=== PATIENT | female | born 1965 | race American Indian/Alaskan Native ===

== ENCOUNTER 2018-09-10 15:38 | Inpatient (IN) | payer OTHER ==
[2018-09-10 16:44] LABS: Basophils # (Auto) 0.1 K/mm3 (0.0-0.1); Basophils % (Auto) 0.8 % (0.0-1.8); Eosinophils # (Auto) 0.2 K/mm3 (0.0-0.4); Eosinophils % (Auto) 3.7 % (0.0-4.3); Hemoglobin 13.6 gm/dl (10.1-14.3); Lymphocytes # (Auto) 2.2 K/mm3 (1.2-5.4); Lymphocytes % (Auto) 36.4 % (13.4-35.0); Mean Corpuscular HGB Conc 34 % (30-34); Mean Corpuscular Hemoglobin 30 pg (28-32); Mean Corpuscular Volume 87 fl (79-97); Monocytes # (Auto) 0.4 K/mm3 (0.0-0.8); Monocytes % (Auto) 6.7 % (0.0-7.3); Platelet Count 221 K/mm3 (140-440); Red Blood Count 4.61 M/mm3 (3.65-5.03); Red Cell Distribution Width 14.1 % (13.2-15.2)
[2018-09-10] MEDS ORDERED: TORADOL IV ONE (17:50)
[2018-09-10] MEDS ORDERED: NACL 0.9% 1000 ML 1,000 ML IV ONE (17:50)
[2018-09-10 18:02] LABS: Alanine Aminotransferase 13 units/L (7-56); Albumin 4.5 g/dL (3.9-5); BUN/Creatinine Ratio 12; Blood Urea Nitrogen 12 mg/dL (7-17); Calcium 9.5 mg/dL (8.4-10.2); Hemolysis Index 4; Lipase 14 units/L (13-60)
--- NOTE | 2018-09-10 18:47 | Emergency Department Report ---
ED Abdominal Pain HPI - General Chief Complaint: Abdominal Pain Stated Complaint: GALLSTONES/ABDONIMAL PAIN Time Seen by Provider: 09/10/18 17:18 Source: patient, EMS Mode of arrival: Ambulatory Limitations: No Limitations - History of Present Illness Initial Comments: This is a 53-year-old female nontoxic, well nourished in appearance, no acute signs of distress presents to the ED with c/o of nausea and right upper abdominal pain 2 days. Patient denies any vomiting. Patient describes abdominal pain as cramping and aching with level of 3/10. Patient stated she was diagnosed with gallstones in [place] and needs to have a surgery but has never scheduled surgery yet. Patient denies chest pain, short of breath, fever, chills, headache, stiff neck, numbness or tingling. Patient denies any diarrhea or constipation. Patient denies any recent travels. Patient denies any drug allergies or significant past medical history. MD Complaint: abdominal pain -: days(s) (2) Location: RUQ Radiation: R flank Migration to: no migration Severity: mild Severity scale (0 -10): 8 Quality: aching Consistency: constant Improves With: nothing Worsens With: nothing Associated Symptoms: nausea. denies: vomiting, diarrhea, fever, chills, constipation, dysuria, hematemesis, hematochezia, melena, hematuria, anorexia, syncope - Related Data Allergies Allergy/AdvReac Type Severity Reaction Status Date / Time peanut Allergy Hives Verified 09/10/18 15:52 ED Review of Systems ROS: Stated complaint: GALLSTONES/ABDONIMAL PAIN Other details as noted in HPI Constitutional: denies: chills, fever Eyes: denies: eye pain, eye discharge, vision change ENT: denies: ear pain, throat pain Respiratory: denies: cough, shortness of breath, wheezing Cardiovascular: denies: chest pain, palpitations Endocrine: no symptoms reported Gastrointestinal: abdominal pain, nausea. denies: vomiting, diarrhea, constipation Genitourinary: denies: urgency, dysuria, discharge Musculoskeletal: denies: back pain, joint swelling, arthralgia Skin: denies: rash, lesions Neurological: denies: headache, weakness, paresthesias Psychiatric: denies: anxiety, depression Hematological/Lymphatic: denies: easy bleeding, easy bruising ED Past Medical Hx - Past Medical History Hx Asthma: Yes - Surgical History Additional Surgical History: Hyst, shoulder, throat - Social History Smoking Status: Never Smoker Substance Use Type: None ED Physical Exam - General Limitations: No Limitations General appearance: alert, in no apparent distress - Head Head exam: Present: atraumatic, normocephalic - Eye Eye exam: Present: normal appearance Pupils: Present: normal accommodation - ENT ENT exam: Present: normal exam, mucous membranes moist - Neck Neck exam: Present: normal inspection, full ROM. Absent: tenderness, meningismus, lymphadenopathy - Respiratory Respiratory exam: Present: normal lung sounds bilaterally. Absent: respiratory distress, wheezes, rales, rhonchi, stridor, chest wall tenderness, accessory muscle use, decreased breath sounds, prolonged expiratory - Cardiovascular Cardiovascular Exam: Present: regular rate, normal rhythm, normal heart sounds. Absent: bradycardia, tachycardia, irregular rhythm, systolic murmur, diastolic murmur, rubs, gallop - GI/Abdominal GI/Abdominal exam: Present: soft, tenderness (RUQ), guarding, normal bowel sounds. Absent: distended, rebound, rigid, diminished bowel sounds, hyperactive bowel sounds, hypoactive bowel sounds, mass, bruit, pulsatile mass - Expanded GI/Abdominal Exam Expanded GI/Abdominal exam: Present: Hays's sign. Absent: psoas sign, Rovsing's sign, tenderness at [place]bur[place]'s Point, ascites - Rectal Rectal exam: Present: deferred - Extremities Exam Extremities exam: Present: normal inspection, full ROM, normal capillary refill. Absent: tenderness - Back Exam Back exam: Present: normal inspection, full ROM. Absent: tenderness, CVA tenderness (R), CVA tenderness (L), muscle spasm, paraspinal tenderness, vertebral tenderness, rash noted - Neurological Exam Neurological exam: Present: alert, oriented X3, normal gait - Psychiatric Psychiatric exam: Present: normal affect, normal mood - Skin Skin exam: Present: warm, dry, intact, normal color. Absent: rash ED Course Vital Signs 09/10/18 09/10/18 09/10/18 15:52 19:15 19:21 Temperature 98.6 F Pulse Rate 68 Respiratory 18 18 18 Rate Blood Pressure 110/72 Blood Pressure [Right] O2 Sat by Pulse 100 Oximetry 09/10/18 09/10/18 19:45 20:42 Temperature Pulse Rate 58 L Respiratory 18 18 Rate Blood Pressure Blood Pressure 112/74 [Right] O2 Sat by Pulse 97 Oximetry - Reevaluation(s) Reevaluation #1: 09/10/18 20:40 Patient is speaking in full sentences with no signs of distress noted. ED Medical Decision Making - Lab Data Result diagrams: 09/10/18 16:31 09/10/18 16:31 - Medical Decision Making This is a 53-year-old female that presents with cholecystitis. Patient is stable and was examined by me. There is slight abdominal tenderness at RUQ Labs obtained. UA obtained. US and CT with contrast of abdomen obtained and dictated by the radiologist. Patient is notified of the report with no questions noted by the patient. Patient was given some rounds of pain analgesics IV which sent as a pain has not resolved. Patient was consulted with Dr. Hartley (general surgeon) about patient history , physical exam, laboratory a CT scan with abdomen it agrees for admission. Patient is admitted by Dr. Shaw (hospitalist). At time of admission, the patient does not seem toxic or ill in appearance. No acute signs of distress noted. Patient agrees to admission treatment plan of care. No further questions noted by the patient. Critical care attestation.: If time is entered above; I have spent that time in minutes in the direct care of this critically ill patient, excluding procedure time. ED Disposition Clinical Impression: Cholecystitis, Biliary colic Disposition: OP ADMIT IP TO THIS HOSP Is pt being admited?: Yes Condition: Stable
[2018-09-10] MEDS ORDERED: MORPHINE IV ONE (18:59)
[2018-09-10] MEDS ORDERED: ZOFRAN IV ONE (18:59)
--- NOTE | 2018-09-10 19:45 | Ultrasound Report ---
FINAL REPORT PROCEDURE: US ABDOMEN COMPLETE TECHNIQUE: Real-time sonography in multiple planes of the abdomen was performed with image documentation. CPT 16391 HISTORY: abd pain COMPARISON: No prior studies are available for comparison. FINDINGS: Liver: There is an echogenic lesion in the right lobe which measures 1.7 x 1.7 x 1.7 centimeters, of indeterminate etiology. Gallbladder: A fluid-filled gallbladder is not visualized. There is shadowing in the region of the gallbladder fossa, which could be related to wall echo shadow complex secondary to contracted gallbladder with gallstones. [employer] reports positive sonographic Hays sign. There is a structure measured in the region of the gallbladder fossa, which could be a thickened gallbladder wall, measuring 5 millimeters in thickness Intrahepatic bile ducts: Normal caliber . Extrahepatic bile ducts: Common bile duct is abnormally dilated, measuring 9 millimeters in caliber. Pancreas: Not fully visualized. Aorta: Visualized portions appear normal. IVC: Visualized portions appear normal. RIGHT kidney: Normal echotexture. No focal renal mass, calculus, or hydronephrosis. Length: 9.1cm. LEFT kidney: Normal echotexture. No focal renal mass, calculus, or hydronephrosis . Length: 8.2cm. Spleen: Normal size and echotexture. No focal lesions. Intraperitoneal fluid: None . Other: None . IMPRESSION: Fluid-filled gallbladder is not visualized. Structure in the gallbladder fossa could be related to contracted gallbladder with gallstones. Cannot exclude cholecystitis based on above findings. There is biliary ductal dilatation. 1.7 centimeter echogenic lesion in the right hepatic lobe is indeterminate. This could be related to a hemangioma, however recommend follow-up multiphase CT with IV contrast for further evaluation
--- NOTE | 2018-09-10 22:12 | Cat Scan Report ---
FINAL REPORT PROCEDURE: CT ABDOMEN PELVIS W CON TECHNIQUE: Computerized axial tomography of the abdomen and pelvis was performed after the IV injection of iodinated nonionic contrast. HISTORY: abd pain COMPARISON: Ultrasound right upper quadrant 09/10/2018 FINDINGS: Liver demonstrates an irregular hypodense lesion measuring 1.4 centimeters by 1.2 centimeters located in the right lobe which appears to demonstrate centripetal enhancement. Spleen, pancreas and adrenal glands are within normal limits. Bilateral kidneys demonstrate uniform enhancement without hydronephrosis. Urinary bladder is normally distended with normal outlines. Aorta is of normal caliber. There is no free fluid or free air. Gallbladder brewster appear thickened. Small bowel loops are within normal limits. Appendix is normal. There is mild degree residual stool. Small uncomplicated fat containing umbilical hernia is noted. Vertebral height is normal. IMPRESSION: Thickened gallbladder brewster are suspicious for cholecystitis. An irregular hypodense lesion of right lobe liver demonstrating a peripheral enhancement most likely represents hemangioma. Its ultrasound appearance also is consistent with hemangioma.
[2018-09-10] MEDS ORDERED: DILAUDID IV ONE (22:39)
--- NOTE | 2018-09-10 23:42 | History and Physical Report ---
History of Present Illness Date of examination: 09/10/18 History of present illness: 53 year-old woman with a no medical history comes to emergency room with complaint of abdominal pain located in the right upper quadrant and epigastric area that started 2 days ago. he described the pain as sharp, constant, intensity 7/10, no radiation, worse with eating. Admits to nausea vomiting, no fever Review of systems Constitutional: no weight loss, chills, fever Ears, eyes, nose, mouth and throat: no nasal congestion, no nasal discharge, no sinus pressure, no vision change, no red eye. Neck: No neck pain or rigidity. Cardiovascular: no chest pain, palpitations Respiratory: no cough, shortness of breath Gastrointestinal: no hematochezia Genitourinary : no frequency , no hematuria Musculoskeletal: no joint swelling or muscle ache Integumentary: no rash, no pruritis Neurological: no parathesias, no numbness, no focal weakness Endocrine: no cold or heat intolerance, no polyuria or polydipsia Hematologic/Lymphatic: no easy bruising, no easy bleeding, no gland swelling Allergic/Immunologic: no urticaria, no angioedema PAST MEDICAL HISTORY none PAST SURGICAL HISTORY: left shoulder SOCIAL HISTORY: No alcohol, no drugs, tobacco FAMILY HISTORY: Hypertension Medications and Allergies Allergies Allergy/AdvReac Type Severity Reaction Status Date / Time peanut Allergy Hives Verified 09/10/18 15:52 Home Medications Medication Instructions Recorded Confirmed Last Taken Type FLUoxetine [PROzac] 20 mg PO BID 09/10/18 09/10/18 Unknown History Exam - Physical Exam Narrative exam: Gen. appearance: Patient lying in bed, no apparent distress HEENT: Normocephalic, atraumatic, pupils equally round and reactive to light, extraocular movement intact, and no sclericterus,. No JVD or thyromegaly or nodule,neck supple, no carotid bruit ,mucous membranes moist, no exudate or erythema Heart: S1, S2, regular rate and rhythm Lungs: Clear bilaterally, breathing comfortable Abdomen: Positive bowel sounds, right upper quadrant tenderness, nondistended, no organomegaly Extremity:no edema cyanosis, clubbing Skin: no rash, dry, warm Neuro: Oriented 3, cranial nerves II-12 intact, speech is fluent, motor and sensory intact - Constitutional Vitals: Temp Pulse Resp BP Pulse Ox 98.6 F 58 L 20 112/69 99 09/10/18 15:52 09/10/18 23:12 09/10/18 23:12 09/10/18 23:12 09/10/18 23:12 Results - Labs CBC & Chem 7: 09/10/18 16:31 09/10/18 16:31 Labs: Abnormal lab results 09/10/18 Range/Units 16:31 Lymph % (Auto) 36.4 H (13.4-35.0) % - Imaging and Cardiology CT scan - abdomen: report reviewed CT scan - pelvis: report reviewed US - abdomen: report reviewed Assessment and Plan Assessment Acute cholecystitis Plan Admit to medicine Nothing by mouth, IV fluids IV pain medication Consult surgery, DVT prophylaxis
[2018-09-11 05:05] LABS: Bilirubin,Urine NEG (Negative); Blood,Urine SM (Negative); Color,Urine Yellow (Yellow); Mucus,Urine FEW /HPF; Protein,Urine <15 mg/dL mg/dL (Negative)
[2018-09-11] MEDS ORDERED: MORPHINE IV PRN (09:53)
[2018-09-11] MEDS ORDERED: ZOFRAN IV PRN (09:53)
--- NOTE | 2018-09-11 09:59 | Consultation ---
History of Present Illness Consult date: 09/11/18 Chief complaint: abdominal pain - History of present illness History of present illness: 53 yo F with no PMHx presents with c/o RUQ and mid epigastric abdominal pain for the last 6-7 days. The pain is sharp, and does not radiate. It is brought on by eating any type of food. It usually gets better with fasting however it has been constant for the last several days. It is associated with nausea but no vomiting. + diarrhea. No CP, SOB, f/c. The patient has had pain like this in the past. In April she was worked up for the pain at the [place] and underwent ultrasound and MRI. She states she was diagnosed with gallstones and was waiting to hear back from the [place] regarding surgery. Last cscope was this year and was negative. Past History Past Medical History: No medical history Past Surgical History: hysterectomy (transvaginal/laparoscopic), Other (EGD/ cscope, right rotator cuff surgery) Social history: no significant social history Family history: no significant family history Medications and Allergies Allergies Allergy/AdvReac Type Severity Reaction Status Date / Time peanut Allergy Hives Verified 09/10/18 15:52 Home Medications Medication Instructions Recorded Confirmed Last Taken Type FLUoxetine [PROzac] 20 mg PO BID 09/10/18 09/10/18 Unknown History Active Meds: Active Medications Enoxaparin Sodium (Lovenox) 40 mg SUB-Q QDAY MICHAEL Piperacillin Sod/Tazobactam Sod (Zosyn/Ns 4.5gm/100ml) 4.5 gm in 100 mls @ 200 mls/hr IV Q8HR MICHAEL; Protocol Morphine Sulfate (Morphine) 2 mg IV Q4H PRN PRN Reason: Pain, Moderate (4-6) Ondansetron HCl (Zofran) 4 mg IV Q8H PRN PRN Reason: Nausea And Vomiting Review of Systems All systems: negative (10 pt ROS performed and negative except for that listed in HPI) Exam Vital Signs Temp Pulse Resp BP Pulse Ox 98.6 F 68 18 110/72 100 09/10/18 15:52 09/10/18 15:52 09/10/18 15:52 09/10/18 15:52 09/10/18 15:52 Narrative exam: Gen: AAOx3. NAD ENT: no scleral icterus or conjunctival pallor CV: S1, S2+, no m/r/g Resp: CTAB, no w/r/r Abd: soft, ND, +RUQ TTP. no r/r/g Ext: no c/c/e Results - Labs 09/10/18 16:31 09/10/18 16:31 Abnormal lab results 09/10/18 09/11/18 Range/Units 16:31 04:52 Lymph % (Auto) 36.4 H (13.4-35.0) % Ur Specific [place] > 1.059 H (1.003-1.030) Diabetes panel 09/10/18 Range/Units 16:31 Sodium 140 (137-145) mmol/L Potassium 4.9 (3.6-5.0) mmol/L Chloride 103.0 (98-107) mmol/L Carbon Dioxide 25 (22-30) mmol/L BUN 12 (7-17) mg/dL Creatinine 1.0 (0.7-1.2) mg/dL Glucose 90 (65-100) mg/dL Calcium 9.5 (8.4-10.2) mg/dL AST 19 (5-40) units/L ALT 13 (7-56) units/L Alkaline Phosphatase 82 (35-129) units/L Total Protein 7.5 (6.3-8.2) g/dL Albumin 4.5 (3.9-5) g/dL Calcium panel 09/10/18 Range/Units 16:31 Calcium 9.5 (8.4-10.2) mg/dL Albumin 4.5 (3.9-5) g/dL Pituitary panel 09/10/18 Range/Units 16:31 Sodium 140 (137-145) mmol/L Potassium 4.9 (3.6-5.0) mmol/L Chloride 103.0 (98-107) mmol/L Carbon Dioxide 25 (22-30) mmol/L BUN 12 (7-17) mg/dL Creatinine 1.0 (0.7-1.2) mg/dL Glucose 90 (65-100) mg/dL Calcium 9.5 (8.4-10.2) mg/dL Adrenal panel 09/10/18 Range/Units 16:31 Sodium 140 (137-145) mmol/L Potassium 4.9 (3.6-5.0) mmol/L Chloride 103.0 (98-107) mmol/L Carbon Dioxide 25 (22-30) mmol/L BUN 12 (7-17) mg/dL Creatinine 1.0 (0.7-1.2) mg/dL Glucose 90 (65-100) mg/dL Calcium 9.5 (8.4-10.2) mg/dL Total Bilirubin 0.40 (0.1-1.2) mg/dL AST 19 (5-40) units/L ALT 13 (7-56) units/L Alkaline Phosphatase 82 (35-129) units/L Total Protein 7.5 (6.3-8.2) g/dL Albumin 4.5 (3.9-5) g/dL - Imaging CT scan - abdomen: report reviewed, image reviewed CT scan - pelvis: report reviewed, image reviewed US - abdomen: report reviewed, image reviewed Assessment and Plan 53 yo F with acute cholecystitis, dilated common bile duct Plan: 1. Pt admitted to hospitalist service 2. [facility] 3. Pt LFTs, bilirubin normal despite dilated CBD. Rpt CMP in am 4. Clear liquid diet, NPO p MN 5. IVF 6. prn pain and nausea control 7. IV abx - zosyn 8. Plan for OR tomorrow 09/12/18 for laparoscopic, possible open, cholecystectomy with cholangiogram. All risks, benefits, and alternatives to surgery were discussed with the patient. All questions answered and consent obtained. Thank you for this consultation, please call with questions or concerns.
--- NOTE | 2018-09-11 13:06 | Progress Note ---
Assessment and Plan Assessment and plan: 53 year old -English female was presented to the emergency department complaining of right epigastric pain that has been worsened for the last [address] abdomen and pelvis and right upper quadrant abdominal ultrasound showed cholecystitis. Patient is on IV antibiotics, surgery consulted and will do a cholecystectomy tomorrow. DVT prophylaxis; on lovenox Disposition; will be discharged likely tomorrow after cholecystectomy. History Interval history: Patient was seen and evaluated this morning, abdominal pain is controlled. Hospitalist Physical - Physical exam Narrative exam: Not in cardiopulmonary distress. The patient appeared well nourished and normally developed. Vital signs as documented. Head exam is unremarkable. No scleral icterus . Neck is without jugular venous distension, thyromegaly, or carotid bruits. Lungs are clear to auscultation. Cardiac exam reveals regular rate and Rhythm. Abdominal exam reveals normal bowel sounds, nontender, nondistended. Extremities are nonedematous and both femoral and pedal pulses are normal. [employer]: Alert and oriented 3. No focal weakness. - Constitutional Vitals: Temp Pulse Resp BP Pulse Ox 97.4 F L 56 L 16 99/62 99 09/11/18 03:46 09/11/18 03:46 09/11/18 03:46 09/11/18 03:46 09/11/18 03:46 Results - Labs CBC & Chem 7: 09/10/18 16:31 09/10/18 16:31 Labs: Laboratory Last Values WBC 6.1 K/mm3 (4.5-11.0) 09/10/18 16:31 RBC 4.61 M/mm3 (3.65-5.03) 09/10/18 16:31 Hgb 13.6 gm/dl (10.1-14.3) 09/10/18 16:31 Hct 40.0 % (30.3-42.9) 09/10/18 16:31 MCV 87 fl (79-97) 09/10/18 16:31 MCH 30 pg (28-32) 09/10/18 16:31 MCHC 34 % (30-34) 09/10/18 16:31 RDW 14.1 % (13.2-15.2) 09/10/18 16:31 Plt Count 221 K/mm3 (140-440) 09/10/18 16:31 Lymph % (Auto) 36.4 % (13.4-35.0) H 09/10/18 16:31 [place] % (Auto) 6.7 % (0.0-7.3) 09/10/18 16:31 Eos % (Auto) 3.7 % (0.0-4.3) 09/10/18 16:31 Baso % (Auto) 0.8 % (0.0-1.8) 09/10/18 16:31 Lymph # 2.2 K/mm3 (1.2-5.4) 09/10/18 16:31 [place] # 0.4 K/mm3 (0.0-0.8) 09/10/18 16:31 Eos # 0.2 K/mm3 (0.0-0.4) 09/10/18 16:31 Baso # 0.1 K/mm3 (0.0-0.1) 09/10/18 16:31 Seg Neutrophils % 52.4 % (40.0-70.0) 09/10/18 16:31 Seg Neutrophils # 3.2 K/mm3 (1.8-7.7) 09/10/18 16:31 Sodium 140 mmol/L (137-145) 09/10/18 16:31 Potassium 4.9 mmol/L (3.6-5.0) 09/10/18 16:31 Chloride 103.0 mmol/L (98-107) 09/10/18 16:31 Carbon Dioxide 25 mmol/L (22-30) 09/10/18 16:31 Anion Gap 17 mmol/L 09/10/18 16:31 BUN 12 mg/dL (7-17) 09/10/18 16:31 Creatinine 1.0 mg/dL (0.7-1.2) 09/10/18 16:31 Estimated GFR > 60 ml/min 09/10/18 16:31 BUN/Creatinine Ratio 12 % 09/10/18 16:31 Glucose 90 mg/dL (65-100) 09/10/18 16:31 Calcium 9.5 mg/dL (8.4-10.2) 09/10/18 16:31 Total Bilirubin 0.40 mg/dL (0.1-1.2) 09/10/18 16:31 AST 19 units/L (5-40) 09/10/18 16:31 ALT 13 units/L (7-56) 09/10/18 16:31 Alkaline Phosphatase 82 units/L (35-129) 09/10/18 16:31 Total Protein 7.5 g/dL (6.3-8.2) 09/10/18 16:31 Albumin 4.5 g/dL (3.9-5) 09/10/18 16:31 Albumin/Globulin Ratio 1.5 % 09/10/18 16:31 Lipase 14 units/L (13-60) 09/10/18 16:31 Urine Color Yellow (Yellow) 09/11/18 04:52 Urine Turbidity Clear (Clear) 09/11/18 04:52 Urine pH 5.0 (5.0-7.0) 09/11/18 04:52 Ur Specific [place] > 1.059 (1.003-1.030) H 09/11/18 04:52 Urine Protein <15 mg/dl mg/dL (Negative) 09/11/18 04:52 Urine Glucose (UA) Neg mg/dL (Negative) 09/11/18 04:52 Urine Ketones Neg mg/dL (Negative) 09/11/18 04:52 Urine Blood Sm (Negative) 09/11/18 04:52 Urine Nitrite Neg (Negative) 09/11/18 04:52 Urine Bilirubin Neg (Negative) 09/11/18 04:52 Urine Urobilinogen 2.0 mg/dL (<2.0) 09/11/18 04:52 Ur Leukocyte Esterase Neg (Negative) 09/11/18 04:52 Urine WBC (Auto) 1.0 /HPF (0.0-6.0) 09/11/18 04:52 Urine RBC (Auto) 1.0 /HPF (0.0-6.0) 09/11/18 04:52 U Epithel Cells (Auto) 3.0 /HPF (0-13.0) 09/11/18 04:52 Urine Mucus Few /HPF 09/11/18 04:52
[2018-09-11] MEDS: LOVENOX SUB-Q SCH (14:17)
[2018-09-11] MEDS: ZOSYN/NS 4.5GM/100ML 4.5 GM/100 ML VIAL IV SCH ×2 (14:18→21:35)
[2018-09-11] MEDS: D5NS 1,000 ML IV SCH ×2 (14:32→21:39)
[2018-09-12] MEDS: D5NS 1,000 ML IV SCH (05:47)
[2018-09-12] MEDS: ZOSYN/NS 4.5GM/100ML 4.5 GM/100 ML VIAL IV SCH ×2 (05:47→14:00)
[2018-09-12] MEDS ORDERED: LACTATED RINGERS 1,000 ML IV SCH ×2 (08:19→10:00)
[2018-09-12] MEDS ORDERED: DECADRON IV NR (08:22)
--- NOTE | 2018-09-12 08:24 | Anesthesia Consultation ---
Anesthesia Consult and Med Hx Date of service: 09/12/18 - Airway Anesthetic Teeth Evaluation: Good, Caps ROM Head & Neck: Adequate Mental/Hyoid Distance: Adequate Mallampati Class: Class II Intubation Access Assessment: Probably Good - Pulmonary Exam CTA: Yes - Cardiac Exam Cardiac Exam: RRR - Pre-Operative Health Status ASA Pre-Surgery Classification: ASA2 Proposed Anesthetic Plan: General - Pulmonary Hx Asthma: Yes COPD: No - Endocrine Hx End Stage Renal Disease: No
[2018-09-12] MEDS ORDERED: MORPHINE IV PRN (08:26)
[2018-09-12] MEDS ORDERED: SUBLIMAZE IV PRN (08:26)
[2018-09-12 08:48] LABS: Alanine Aminotransferase 17 units/L (7-56); Albumin 3.6 g/dL (3.9-5); BUN/Creatinine Ratio 7; Blood Urea Nitrogen 6 mg/dL (7-17); Calcium 8.3 mg/dL (8.4-10.2); Hemolysis Index 6
[2018-09-12] MEDS ORDERED: ZOFRAN IV ONE (09:00)
[2018-09-12] MEDS ORDERED: ZEMURON IV ONE (09:12)
[2018-09-12] MEDS ORDERED: XYLOCAINE MPF 2% ONE (09:12)
[2018-09-12] MEDS ORDERED: ROBINUL ONE (09:12)
[2018-09-12] MEDS ORDERED: BLOXIVERZ ONE (09:12)
[2018-09-12] MEDS ORDERED: SUBLIMAZE ONE (09:13)
[2018-09-12] MEDS ORDERED: DIPRIVAN 10 MG/ML IV ONE (09:13)
[2018-09-12] MEDS ORDERED: PROAIR IH ONE (09:25)
[2018-09-12] MEDS ORDERED: VERSED IV NR (10:00)
[2018-09-12] MEDS ORDERED: MARCAINE 0.5% INFILTRATI ONE ×2 (10:09→10:52)
[2018-09-12] MEDS ORDERED: XYLOCAINE 1% 20 mL ONE (10:09)
[2018-09-12] MEDS ORDERED: NACL 0.9% 250ML 250 ML ONE (10:10)
[2018-09-12] MEDS: LOVENOX SUB-Q SCH (10:37)
[2018-09-12] MEDS ORDERED: XYLOCAINE 1% 20 mL INFILTRATI ONE (10:52)
[2018-09-12] MEDS ORDERED: NACL 0.9% IR ONE ×2 (10:53→11:00)
[2018-09-12] MEDS ORDERED: NACL 0.9% 250ML IV ONE (11:00)
[2018-09-12] MEDS ORDERED: WATER FOR IRRIG STERILE IR ONE (11:00)
[2018-09-12] MEDS ORDERED: DILAUDID ONE (11:14)
[2018-09-12] MEDS ORDERED: PERCOCET 5/325 PO PRN (12:03)
--- NOTE | 2018-09-12 12:05 | Post Operative Note ---
Date of procedure: 09/12/18 Pre-op diagnosis: acute cholecystitis Post-op diagnosis: other (acute calculus cholecystitis) Findings: Thickened gallbladder with adhesions to the omentum. Gallbladder with stones. Cholangiogram unremarkable. Procedure: Laparoscopic cholecystectomy with intraoperative cholangiogram Anesthesia: GETA, local Surgeon: MO WHTIE Estimated blood loss: minimal Pathology: list (gallbladder) Specimen disposition: to lab Condition: stable Disposition: PACU
--- NOTE | 2018-09-12 14:03 | Discharge Summary ---
Providers - Providers Date of Admission: 09/10/18 23:42 Attending physician: LISE CEJA MD 09/10/18 23:23 Consult to Physician [CONS] Stat Comment: Practioner Rajat spoke with Dr. White @ [id number] Consulting Provider: MO WHITE Physician Instructions: Reason For Exam: cholecystitis Primary care physician: CRIME SCENE INVESTIGATOR Hospitalization Reason for admission: cholecystitis Condition: Stable Pertinent studies: CT abdomen IMPRESSION: Thickened gallbladder brewster are suspicious for cholecystitis. An irregular hypodense lesion of right lobe liver demonstrating a peripheral enhancement most likely represents hemangioma. Its ultrasound appearance also is consistent with hemangioma. Abdomianl U/S IMPRESSION: Fluid-filled gallbladder is not visualized. Structure in the gallbladder fossa could be related to contracted gallbladder with gallstones. Cannot exclude cholecystitis based on above findings. There is biliary ductal dilatation. 1.7 centimeter echogenic lesion in the right hepatic lobe is indeterminate. This could be related to a hemangioma, however recommend follow-up multiphase CT with IV contrast for further evaluation Procedures: laparascopic cholecystectomy Hospital course: 53 year-old woman with a no medical history comes to emergency room with complaint of abdominal pain located in the right upper quadrant and epigastric area that started 2 days ago. he described the pain as sharp, constant, intensity 7/10, no radiation, worse with eating. Admits to nausea vomiting, no fever. patient was admitted to the floor and general surgery was consulted and diagnosed chronic cholecystitis was diagnosed and next day cholecystectomy was done. Patient tolerated the procedure wel and tolerated diet, discharged home in a stable condition. Disposition: DC-01 TO HOME OR SELFCARE Time spent for discharge: 32 minutes - Discharge Diagnoses (1) Biliary colic Status: Acute (2) Cholecystitis Status: Acute Core Measure Documentation - Palliative Care Palliative Care/ Comfort Measures: Not Applicable - Core Measures Any of the following diagnoses?: none Exam - Physical Exam Narrative exam: Not in cardiopulmonary distress. The patient appeared well nourished and normally developed. Vital signs as documented. Head exam is unremarkable. No scleral icterus . Neck is without jugular venous distension, thyromegaly, or carotid bruits. Lungs are clear to auscultation. Cardiac exam reveals regular rate and Rhythm. Abdominal exam reveals normal bowel sounds, nontender, nondistended. Extremities are nonedematous and both femoral and pedal pulses are normal. EMERGENCY RESPONSE OFFICER: Alert and oriented 3. No focal weakness. - Constitutional Vitals: Temp Pulse Resp BP Pulse Ox 97.9 F 65 16 132/71 95 09/12/18 13:21 09/12/18 13:21 09/12/18 13:21 09/12/18 13:21 09/12/18 13:21 Plan Activity: no restrictions Weight Bearing Status: Full Weight Bearing Diet: low fat, advance as tolerated Additional Instructions: F/u at [facility] in 1-2 weeks Follow up with: PRIMARY MD MICHELLE [Primary Care Provider] - 7 Days
[2018-09-12 16:28] VITALS: BP 120/68
--- NOTE | 2018-09-12 17:16 | Operative Report ---
Operative Report Operative Report: Date of procedure: 09/12/18 Pre-op diagnosis: acute cholecystitis Post-op diagnosis: other (acute calculus cholecystitis) Findings: Thickened gallbladder with adhesions to the omentum. Gallbladder with stones. Cholangiogram unremarkable. Procedure: Laparoscopic cholecystectomy with intraoperative cholangiogram Anesthesia: CORNELA, local Surgeon: MO WHITE Estimated blood loss: minimal Pathology: list (gallbladder) Specimen disposition: to lab Condition: stable Disposition: PACU HPI an indication: Patient is a 53 year-old female with known history of gallstones presented to ER with c/o severe RUQ and epigastric pain following oral intake. She was found to have acute cholecystitis on CT scan A/P and ultrasound. Her common bile duct was dilated however LFTs and bilirubin was within normal limits. Cholecystectomy with cholangiogram was recommended. The patient was agreeable to the plan. All risks, benefits, alternatives to surgery were discussed with the patient and consent signed for laparoscopic cholecystectomy with IOC, possible open. All questions were answered. Procedure in detail: The patient was identified in the preoperative area, taken back to the operating room, placed on the operating room table in supine position. After anesthesia was induced the abdomen was prepped and draped in the usual sterile fashion and a timeout performed. Local anesthetic was infiltrated into all skin incision sites. A stab incision was made in the LUQ at hernandez's point through which a veress needle was inserted. The positioning of the veress needle was confirmed using the saline drop test and the abdomen insufflated to 15mmHg. A 5mm incision was made superior to the umbilicus with the 11 blade and through this a 5 mm optiview trocar was inserted. The abdomen was inspected and there was no underlying injury to any abdominal structures. The veress needle entry site and tract were inspected and no injury seen. The veress needle was removed. The patient was placed in reverse trendelenburg position and tilted to the left. An additional 12mm subxyphoid port and 2 5mm R sided (RUQ and right lateral abdominal) ports were placed under direct visualization. The gallbladder was visualized and was very thickened with dense adhesions to the omentum. The gallbladder was grasped and lifted cephalad over the liver and the adhesions carefully dissected with hook electrocautery. Once the neck of the gallbladder was identified, the cystic duct and artery were carefully skeletonized using the maryland dissector until the critical view was obtained. These were the only two structures seen entering the gallbladder. A clip was placed at the distal aspect of the cystic duct and a ductotomy made with endoshears. A cholangiogram catheter was inserted into the cystic duct and clamped. There was no leaking from the catheter upon injection of injectable saline. A cholangiogram was then performed using 50/50 mixture of saline and omnipaque contrast. The CBD filled and tapered normally without any obvious filling defect. The small bowel, hepatic ducts, and branches were visualized to fill with contrast and appeared unremarkable. The cholangiogram catheter was removed and 2 additional clips were placed on the proximal aspect of the cystic duct and the duct transected with endoshears. Two clips were placed on the proximal cystic artery and one distal and the artery transected between the clips using endoshears. The gallbladder was then dissected off the liver bed using hook electrocautery. The gallbladder was placed into an Endo Catch bag. The liver bed was then irrigated and hemostasis ensured. There was no active bleeding or bile leakage seen from the liver bed. The clips were examined and were intact. Morison's pouch was irrigated until the irrigant returned clear. The patient was then placed into neutral position and the gallbladder removed via the 12 mm port. All irrigant was evacuated. The 12 mm port fascia was closed using interrupted 0 Vicryl sutures with the Samy Ncik device. The remaining ports were removed under direct visualization. All skin incisions were once again infiltrated with local anesthetic and closed using 4-0 Monocryl subcuticular stitches and skin glue. At the end of the case, all sponge, instrument, sharp counts were correct 2. The patient was awoken from anesthesia, extubated, taken to PACU in stable condition.
--- NOTE | 2018-09-13 08:06 | Fluoroscopy Report ---
FLUOROSCOPIC CHOLANGIOGRAM OPERATIVE INDICATION: Gallstones. COMPARISON: 09/10/[address] imaging. IMAGES/CINE CLIPS: 1 FINDINGS: Intraoperative fluoroscopic guidance provided for Dr. Hartley during laparoscopic cholecystectomy with intraoperative cholangiogram. One submitted image suggests approximately 1 cm caliber opacified CBD, gradually tapering to the ampulla. No definite focal suspicious filling defects. Mild central intrahepatic biliary dilatation may also be present. A small surgical clip noted in the gallbladder region. Duodenal opacification also seen as also few iatrogenic devices. CONCLUSION: Intraoperative fluoroscopic guidance provided, as detailed above. Please also correlate with procedure notes. Thank you for the opportunity to participate in this patient's care.
== END 2018-09-12 18:04 | disposition home or self-care (01) | DRG 419 ==
LOC: ED 15:38 → 3B-SURG 23:42
PROVIDERS: ADMIT Internal Medicine; ATTEND Internal Medicine
PROC: 0FT44ZZ Resection of Gallbladder, Percutaneous Endoscopic Approach (ICD-10-PCS; principal; 2018-09-12)
PROC: BF101ZZ Fluoroscopy of Bile Ducts using Low Osmolar Contrast (ICD-10-PCS; 2018-09-12)
DX: K80.46 Calculus of bile duct with acute and chronic cholecystitis without obstruction (principal); J45.909 Unspecified asthma, uncomplicated; Z90.710 Acquired absence of both cervix and uterus; Z82.49 Family history of ischemic heart disease and other diseases of the circulatory system
CPT/HCPCS: 36415; 74177; 74300; 76700; 80053; 81001; 83690; 85025; 88304; 96361; 96365; 96375; A4217; J1100; J1170; J1650; J1885; J2250; J2270; J2405; J2543; J2704; J2710; J3010; J7030; J7042; J7050; J7120; Q9967